=== PATIENT | female | born 1960 | race Caucasian/White ===

== ENCOUNTER 2017-11-07 01:08 | Inpatient (IN) | payer MEDICARE ==
[~2017-11-07] VITALS: Ht 172.7 cm; Wt 63.5 kg
[~2017-11-07 01:08] MED LIST: LEVEMIR SQ; NOVOLOGP2 SQ; SORB70SO36 PO
[2017-11-07 01:09] VITALS: BP 142/64; PULSE 118; RESP 20; TEMP 101.4; O2SAT 98
[2017-11-07] MEDS ORDERED: ACETAMINOPHEN 325 MG TAB PO ONE (02:30)
[2017-11-07] MEDS ORDERED: SODIUM CHLOR 0.9% 1000 ML INJ 1,000 ML IV ONE (02:30)
[2017-11-07] MEDS ORDERED: TACR1CAP PO (02:32)
[2017-11-07] MEDS ORDERED: TACR0.5C PO (02:32)
[2017-11-07] MEDS ORDERED: MAGN400T2 PO (02:32)
[2017-11-07] MEDS ORDERED: ASPI81CH6 CHEW (02:32)
[2017-11-07 03:07] LABS: BASOPHIL # 0.1 TH/MM3 (0-0.2); BASOPHIL % 0.4 % (0.0-2.0); HEMATOCRIT 36.5 % (35.0-46.0); LYMPH % 6.7 % (9.0-44.0); LYMPHOCYTE # 0.9 TH/MM3 (1.0-4.8); MEAN CELL VOLUME 87.7 FL (80.0-100.0); MEAN CORPUSCULAR HEMOGLOBIN 28.7 PG (27.0-34.0); MEAN CORPUSCULAR HGB CONC 32.7 % (32.0-36.0); MEAN PLATELET VOLUME 7.8 FL (7.0-11.0); MONO % 7.4 % (0.0-8.0); NEUT % 85.5 % (16.0-70.0); PLATELET COUNT 205 TH/MM3 (150-450); RED BLOOD COUNT 4.17 MIL/MM3 (4.00-5.30); RED CELL DISTRIBUTION WIDTH 14.7 % (11.6-17.2)
[2017-11-07 03:12] LABS: BACTERIA, URINE FEW /hpf; BILIRUBIN, URINE NEG (NEG); BLOOD, URINE NEG (NEG); GLUCOSE,URINE NEG (NEG); KETONE, URINE 10 mg/dL (NEG); MUCUS URINE FEW /lpf (OCC); NITRITE,URINE NEG (NEG); PH, URINE 5.5 (5.0-8.5); RENAL EPITHELIAL CELLS <1 /hpf; SQUAMOUS EPITHELIAL CELL URINE <1 /hpf (0-5); URINE COLOR YELLOW (YELLW/STRAW); URINE LEUKOCYTE ESTERASE NEG (NEG)
[2017-11-07 03:21] LABS: INTERNATIONAL NORMALIZED RATIO 1.2 RATIO; PROTHROMBIN TIME - PATIENT 12.3 SEC (9.8-11.6)
[2017-11-07 03:30] VITALS: PULSE 112; RESP 20; TEMP 102.8
[2017-11-07 03:32] LABS: BICARBONATE 25.5 MEQ/L (21.0-32.0); CALCIUM 8.6 MG/DL (8.5-10.1); CREATININE 1.34 MG/DL (0.50-1.00)
--- NOTE | 2017-11-07 04:15 | PD ---
HPI Chief Complaint: Fever Time Seen by Provider: 02:19 Travel History International Travel<30 days: No Contact w/Intl Traveler<30days: No Traveled to known affect area: No History of Present Illness HPI 56yo F with PMH of pancreas and left kidney transplant 3 years ago here with c/ o fever for 3 days. She had transplant in [facility] and was told to come get evaluated if she has a temp above 100F. Pt has been having nausea, vomiting and some abdominal discomfort. Denies any chest pain, sob, cough, dysuria, hematuria, focal weakness or numbness. 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 KEN.) Genitourinary Surgery: No Gynecologic Surgery: No Joint Replacement: No Neurologic Surgery: No Oral Surgery: Yes (PERIODONTAL) Pacemaker: No Thoracic Surgery: Yes (BENIGN BIOPSY LEFT BREAST -1998) Other Surgery: Yes (BIOPSY LEFT BREAST YEAR UNKNOWN ) Social History Alcohol Use: No Tobacco Use: No (QUIT ) Substance Use: No Allergies-Medications (Allergen,Severity, Reaction): Coded Allergies: No Known Allergies (Verified Allergy, Mild, 03/05/13) ciprofloxacin (Verified Allergy, Unknown, 11/07/17) Reacts with anti rejection meds per patient Reported Meds & Prescriptions Reported Meds & Active Scripts Active Reported Magnesium Oxide 400 Mg Tab 400 Mg PO DAILY Aspirin Low Dose (Aspirin) 81 Mg Chew 81 Mg CHEW DAILY Tacrolimus 0.5 Mg Cap 0.5 Mg PO Q12H Tacrolimus 1 Mg Cap 2 Mg PO Q12H Review of Systems Except as stated in HPI: all other systems reviewed are Neg Physical Exam Narrative GENERAL: 56yo F in mild distress. SKIN: Focused skin assessment warm/dry. HEAD: Atraumatic. Normocephalic. EYES: Pupils equal and round. No scleral icterus. No injection or drainage. ENT: No nasal bleeding or discharge. Mucous membranes pink and moist. NECK: Trachea midline. No JVD. CARDIOVASCULAR: Tachycardic. No murmur appreciated. RESPIRATORY: No accessory muscle use. Clear to auscultation. Breath sounds equal bilaterally. GASTROINTESTINAL: Abdomen soft, +TTP LLQ. No rebound tenderness or guarding. MUSCULOSKELETAL: No obvious deformities. No clubbing. No cyanosis. No edema. NEUROLOGICAL: Awake and alert. No obvious cranial nerve deficits. Motor grossly within normal limits. Normal speech. PSYCHIATRIC: Appropriate mood and affect; insight and judgment normal. Data Data Last Documented VS Vital Signs Date Time Temp Pulse Resp B/P (MAP) Pulse Ox O2 Delivery O2 Flow Rate FiO2 11/07/17 03:30 102.8 112 20 11/07/17 02:00 98 Room Air Orders Orders Acetaminophen (Tylenol) (11/07/17 02:30) Blood Culture (11/07/17 02:28) Complete Blood Count With Diff (11/07/17 02:28) Basic Metabolic Panel (Bmp) (11/07/17 02:28) Prothrombin Time / Inr (Pt) (11/07/17 02:28) Act Partial Throm Time (Ptt) (11/07/17 02:28) Lactic Acid Sepsis Protocol (11/07/17 02:28) Sodium Chlor 0.9% 1000 Ml Inj (Ns 1000 M (11/07/17 02:30) Urinalysis - C+S If Indicated (11/07/17 02:28) Ct Abd/Pel W/O Iv Contrast (11/07/17 ) Influenzae A/B Antigen (11/07/17 04:40) Ceftriaxone Inj (Rocephin Inj) (11/07/17 05:00) Admit Order (Ed Use Only) (11/07/17 05:04) Labs Laboratory Tests Test 11/07/17 02:50 White Blood Count 14.0 TH/MM3 Red Blood Count 4.17 MIL/MM3 Hemoglobin 12.0 GM/DL Hematocrit 36.5 % Mean Corpuscular Volume 87.7 FL Mean Corpuscular Hemoglobin 28.7 PG Mean Corpuscular Hemoglobin Concent 32.7 % Red Cell Distribution Width 14.7 % Platelet Count 205 TH/MM3 Mean Platelet Volume 7.8 FL Neutrophils (%) (Auto) 85.5 % Lymphocytes (%) (Auto) 6.7 % Monocytes (%) (Auto) 7.4 % Eosinophils (%) (Auto) 0.0 % Basophils (%) (Auto) 0.4 % Neutrophils # (Auto) 12.0 TH/MM3 Lymphocytes # (Auto) 0.9 TH/MM3 Monocytes # (Auto) 1.0 TH/MM3 Eosinophils # (Auto) 0.0 TH/MM3 Basophils # (Auto) 0.1 TH/MM3 CBC Comment DIFF FINAL Differential Comment Prothrombin Time 12.3 SEC Prothromb Time International Ratio 1.2 RATIO Activated Partial Thromboplast Time 25.4 SEC Urine Color YELLOW Urine Turbidity CLEAR Urine pH 5.5 Urine Specific [place] 1.013 Urine Protein TRACE mg/dL Urine Glucose (UA) NEG mg/dL Urine Ketones 10 mg/dL Urine Occult Blood NEG Urine Nitrite NEG Urine Bilirubin NEG Urine Urobilinogen LESS THAN 2.0 MG/DL Urine Leukocyte Esterase NEG Urine RBC 1 /hpf Urine WBC 3 /hpf Urine Squamous Epithelial Cells <1 /hpf Urine Renal Epithelial Cells <1 /hpf Urine Bacteria FEW /hpf Urine Mucus FEW /lpf Microscopic Urinalysis Comment CULT NOT INDICATED Blood Urea Nitrogen 23 MG/DL Creatinine 1.34 MG/DL Random Glucose 108 MG/DL Calcium Level 8.6 MG/DL Sodium Level 135 MEQ/L Potassium Level 4.0 MEQ/L Chloride Level 103 MEQ/L Carbon Dioxide Level 25.5 MEQ/L Anion Gap 7 MEQ/L Estimat Glomerular Filtration Rate 41 ML/MIN Lactic Acid Level 1.8 mmol/L [facility] Medical Decision Making Medical Screen Exam Complete: Yes Emergency Medical Condition: Yes Differential Diagnosis Diverticulitis vs. UTI vs. sepsis secondary to UTI vs. bacteremia Narrative Course 56yo F with transplanted kidney and pancreas here with c/o fever, nausea, vomiting and had some lower abdominal pain on exam. Pt is febrile and tachycardic at triage. Pt given acetaminophen and NS IVF. Labs reviewed, leukocytosis at 14. BUN/creatinine elevated at 23/1.34. Pt had transplanted kidney 3 years ago. Lactic acid 1.8. UA showed ketones. Few bacteria. CT a/ p showed transplanted kidney in left lower quadrant and left pelvis. Tiny 1-2 mm nonobstructing stone. I discussed with Dr. Chase who wants to hold off on antibiotics for now. Ceftriaxone cancelled. Influenza negative. Discussed with Dr. Chase and accepted to Dr. Kunz's service. Diagnosis Primary Impression: Sepsis Qualified Codes: A41.9 - Sepsis, unspecified organism Additional Impression: Dehydration Admitting Information Admitting Physician Requests: Abby Camarena DO Nov 07, 2017 04:14
--- NOTE | 2017-11-07 04:26 | RADRPT ---
EXAM DATE/TIME: 11/07/2017 03:29 [place] COMPARISON: No previous studies available for comparison. INDICATIONS : Left lower quadrant pain and fever. ORAL CONTRAST: No oral contrast ingested. RADIATION DOSE: 6.64 CTDIvol (mGy) MEDICAL HISTORY : Gastroesophageal reflux disease. Renal failure. Diabetes. SURGICAL HISTORY : Kidney and pancreas transplant. ENCOUNTER: Initial ACUITY: 3 days PAIN SCALE: 8/10 LOCATION: Left lower quadrant TECHNIQUE: Volumetric scanning of the abdomen and pelvis was performed. Using automated exposure control and ad justment of the mA and/or kV according to patient size, radiation dose was kept as low as reasonably achievable to obtain optimal diagnostic quality images. DICOM format image data is available electro nically for review and comparison. FINDINGS: LOWER LUNGS: There is minimal atelectasis of the posterior lower lobes being more prominent on the left. LIVER: Homogeneous density without lesion. There is no dilation of the biliary tree. No calcified gallston es. SPLEEN: Normal size without lesion. PANCREAS: Within normal limits. KIDNEYS: There is atrophy with cortical thinning of the [place] kidneys. There is a transplant kidney in the le ft lower quadrant and left pelvis. There is a tiny 1-2 mm nonobstructing renal stone seen at the infe rior aspect of the transplant. Hydronephrosis is not seen. ADRENAL GLANDS: Within normal limits. VASCULAR: There is no aortic aneurysm. Vascular calcifications are seen. BOWEL/MESENTERY: There are linear calcifications or bowel brinda in the right lower quadrant. ABDOMINAL WALL: Within normal limits. RETROPERITONEUM: There is no lymphadenopathy. BLADDER: No wall thickening or mass. REPRODUCTIVE: Within normal limits. INGUINAL: There is no lymphadenopathy or hernia. MUSCULOSKELETAL: Within normal limits for patient age. CONCLUSION: Transplanted kidney in the left lower quadrant and left pelvis. There is a tiny 1-2 mm nonobstructing stone seen. Sidney Alfred MD on November 07, 2017 at 4:20 Board Certified Radiologist. This report was verified electronically.
[2017-11-07] MEDS ORDERED: cefTRIAXone INJ 1,000 MG in SODIUM CHLORIDE 0.9% INJ 100 ML IV ONE (05:00)
[2017-11-07 05:28] VITALS: PULSE 89; RESP 12; TEMP 100.5
[2017-11-07] MEDS ORDERED: ONDANSETRON HCL 4 MG/2 ML VIAL IV PUSH PRN (05:45)
[2017-11-07] MEDS ORDERED: SODIUM CHLOR 0.9% 1000 ML INJ 1,000 ML IV SCH (05:45)
[2017-11-07] MEDS ORDERED: TACROLIMUS 0.5 MG CAP PO SCH (08:00)
[2017-11-07] MEDS ORDERED: TACROLIMUS 1 MG CAP PO SCH (08:00)
[2017-11-07] MEDS ORDERED: ASPIRIN 81 MG CHEW TAB CHEW SCH (09:00)
[2017-11-07] MEDS ORDERED: MAGNESIUM OXIDE 400 MG TAB PO SCH (09:00)
== END 2017-11-07 08:35 | disposition left against medical advice (07) | DRG 872 ==
LOC: NEPE 01:08 → NEDA 05:06 → OBSVTOIN 06:16
PROVIDERS: ADMIT Hospitalist; ATTEND Hospitalist
DX: A41.9 Sepsis, unspecified organism (principal); Z94.83 Pancreas transplant status; Z94.0 Kidney transplant status; G62.9 Polyneuropathy, unspecified; E86.0 Dehydration; K21.9 Gastro-esophageal reflux disease without esophagitis; R00.0 Tachycardia, unspecified; R10.30 Lower abdominal pain, unspecified; R11.2 Nausea with vomiting, unspecified
CPT/HCPCS: 74176; 80048; 81001; 83605; 85025; 85610; 85730; 87040; 87804